=== PATIENT | male | born 1960 | race Asian ===

== ENCOUNTER 2019-02-05 21:30 | Inpatient (IN) | payer MEDICARE, OTHER ==
[2019-02-05 22:37] LABS: ADD MAN DIFF? NO; BASOPHILS % 0.3 % (0.0-2.0); EOSINOPHILS # 0.2 10^3/ul (0.0-0.5); EOSINOPHILS % 2.9 % (0.0-7.0); HEMATOCRIT 27.6 % (42.0-52.0); HEMOGLOBIN 9.3 g/dl (14.0-18.0); LYMPHOCYTES # 1.4 10^3/ul (0.8-2.9); LYMPHOCYTES % 22.3 % (15.0-51.0); MEAN CORPUSCULAR HEMOGLOBIN 30.8 pg (29.0-33.0); MEAN CORPUSCULAR HGB CONC 33.7 g/dl (32.0-37.0); MEAN CORPUSCULAR VOLUME 91.4 fl (82.0-101.0); MEAN PLATELET VOLUME 10.6 fl (7.4-10.4); MONOCYTE # 0.7 10^3/ul (0.3-0.9); NEUTROPHILS % 63.2 % (39.0-77.0); PLATELET COUNT 134 10^3/UL (140-415); RED BLOOD COUNT 3.02 10^6/ul (4.70-6.10)
[2019-02-05 22:37] LABS: WHITE BLOOD COUNT 6.3 10^3/ul (4.8-10.8)
[2019-02-05 22:44] LABS: ALANINE AMINOTRANSFERASE 28 IU/L (13-69); ALBUMIN 4.5 g/dl (3.3-4.9); ALBUMIN/GLOBULIN RATIO 1.55; ALKALINE PHOSPHATASE 59 IU/L (42-121); ANION GAP 16 (5-13); ASPARTATE AMINO TRANSFERASE 18 IU/L (15-46); BILIRUBIN,INDIRECT 0.3 mg/dl (0-1.1); BILIRUBIN,TOTAL 0.3 mg/dl (0.2-1.3); CALCIUM 7.2 mg/dl (8.4-10.2); CARBON DIOXIDE 22 mmol/L (21-31); CHLORIDE 106 mmol/L (97-110); CREATININE 12.61 mg/dl (0.61-1.24); Estimated GFR 4 mL/min (>60); GLUCOSE 187 mg/dl (70-220); POTASSIUM 4.5 mmol/L (3.5-5.1); SODIUM 144 mmol/L (135-144); TOTAL PROTEIN 7.4 g/dl (6.1-8.1)
[2019-02-05 22:53] LABS: BLOOD UREA NITROGEN 149 mg/dl (7-20)
[2019-02-05 22:56] LABS: B-TYPE NATRIURETIC PEPTIDE 876 PG/ML (0-125); TROPONIN-I < 0.012 ng/ml (0.000-0.120)
[2019-02-06] MEDS: FUROSEMIDE 40 MG INJ IV (00:54)
[2019-02-06] MEDS ORDERED: NACL 0.9% 3 ML SYG IV (01:00)
[2019-02-06] MEDS ORDERED: DOCUSATE SODIUM 100 MG CAP PO (01:00)
[2019-02-06] MEDS ORDERED: ACETAMINOPHEN 325 MG TAB PO (01:00)
[2019-02-06] MEDS ORDERED: BISACODYL (EC) 5 MG TAB PO (01:00)
[2019-02-06 05:42] LABS: ADD MAN DIFF? NO
[2019-02-06 05:49] LABS: WHITE BLOOD COUNT 6.3 10^3/ul (4.8-10.8)
[2019-02-06 05:49] LABS: BASOPHILS % 0.3 % (0.0-2.0); EOSINOPHILS # 0.2 10^3/ul (0.0-0.5); EOSINOPHILS % 2.8 % (0.0-7.0); HEMATOCRIT 26.8 % (42.0-52.0); HEMOGLOBIN 9.1 g/dl (14.0-18.0); LYMPHOCYTES # 1.5 10^3/ul (0.8-2.9); LYMPHOCYTES % 23.1 % (15.0-51.0); MEAN CORPUSCULAR HEMOGLOBIN 30.6 pg (29.0-33.0); MEAN CORPUSCULAR VOLUME 90.2 fl (82.0-101.0); MEAN PLATELET VOLUME 10.2 fl (7.4-10.4); MONOCYTE # 0.7 10^3/ul (0.3-0.9); MONOCYTES % 10.4 % (0.0-11.0); NEUTROPHILS % 62.9 % (39.0-77.0); PLATELET COUNT 127 10^3/UL (140-415); RED BLOOD COUNT 2.97 10^6/ul (4.70-6.10)
[2019-02-06 06:21] LABS: CREATINE KINASE 926 IU/L (23-200)
[2019-02-06 06:23] LABS: ALANINE AMINOTRANSFERASE 30 IU/L (13-69); ALBUMIN 4.2 g/dl (3.3-4.9); ALBUMIN/GLOBULIN RATIO 1.35; ALKALINE PHOSPHATASE 60 IU/L (42-121); ANION GAP 16 (5-13); ASPARTATE AMINO TRANSFERASE 17 IU/L (15-46); BILIRUBIN,INDIRECT 0.3 mg/dl (0-1.1); BILIRUBIN,TOTAL 0.3 mg/dl (0.2-1.3); CARBON DIOXIDE 22 mmol/L (21-31); CHLORIDE 107 mmol/L (97-110); CREATININE 12.62 mg/dl (0.61-1.24); Estimated GFR 4 mL/min (>60); GLUCOSE 158 mg/dl (70-220); PHOSPHORUS 7.6 mg/dl (2.5-4.9); POTASSIUM 4.5 mmol/L (3.5-5.1); SODIUM 145 mmol/L (135-144); TOTAL PROTEIN 7.3 g/dl (6.1-8.1)
[2019-02-06] MEDS ORDERED: INSULIN LISPRO 45 UNIT SQ (06:30)
[2019-02-06 06:31] LABS: CK INDEX 0.4; TROPONIN-I 0.013 ng/ml (0.000-0.120)
[2019-02-06 06:55] LABS: BLOOD UREA NITROGEN 139 mg/dl (7-20)
[2019-02-06 07:54] LABS: MAGNESIUM 2.8 mg/dl (1.7-2.5)
[2019-02-06 07:55] LABS: CHOLESTEROL 105 mg/dl (100-200)
[2019-02-06 07:55] LABS: HDL CHOLESTEROL 34 mg/dl (30-78); LDL CHOLESTEROL,CALCULATED 47 mg/dl; TRIGLYCERIDES 122 mg/dl (0-149)
[2019-02-06] MEDS: INSULIN ASPART [NOVOLOG] 3 ML PEN SC ×7 (07:59→23:24)
[2019-02-06 08:07] LABS: HEMOGLOBIN A1C 7.9 % (0-5.9)
[2019-02-06] MEDS: CHOLECALCIFEROL 400 UNITS TAB PO (08:40)
[2019-02-06] MEDS: MULTIVITAMINS/MINERALS TAB PO (08:40)
[2019-02-06] MEDS: MULTIVIT/CA CARB/B CMPLX/FA TAB PO (08:40)
[2019-02-06] MEDS: ASPIRIN (EC) 81 MG TAB PO (08:40)
[2019-02-06] MEDS: AMLODIPINE 10 MG TAB PO (08:41)
[2019-02-06] MEDS: METOPROLOL 25 MG TAB PO ×2 (08:41→23:06)
[2019-02-06] MEDS ORDERED: GLUCAGON 1 MG INJ IM (09:00)
[2019-02-06] MEDS ORDERED: GLUCOSE GEL 15 GRAM TUBE BUCCAL (09:00)
[2019-02-06] MEDS ORDERED: DEXTROSE 50% 50 ML SYRINGE IV ×2 (09:00)
[2019-02-06] MEDS ORDERED: GLUCOSE GEL 15 GRAM TUBE PO ×2 (09:00)
[2019-02-06 10:56] LABS: CREATINE KINASE 849 IU/L (23-200)
[2019-02-06 11:08] LABS: CK INDEX 0.3; TROPONIN-I < 0.012 ng/ml (0.000-0.120)
[2019-02-06 11:11] LABS: CK-MB 2.77 ng/ml (0.0-2.4)
[2019-02-06] MEDS: ACCU-CHEK XX (12:18)
[2019-02-06 18:42] LABS: HEPATITIS B SURFACE ANTIGEN NEGATIVE (NEGATIVE)
[2019-02-06] MEDS: MANNITOL 25% 50 ML IV ×2 (19:29→19:39)
[2019-02-06] MEDS ORDERED: INSULIN GLARGINE [LANtus] 3 ML PEN SC (21:00)
[2019-02-06] MEDS: ATORVASTATIN 40 MG TAB PO (23:06)
[2019-02-06] MEDS: hydrALAzine 20 MG INJ IV (23:07)
[2019-02-06] MEDS: INSULIN GLARGINE [LANTus] (100 UNITS/ML) SYG SC (23:24)
[2019-02-07] MEDS: ACCU-CHEK XX (01:59)
[2019-02-07 05:43] LABS: ADD MAN DIFF? NO
[2019-02-07 05:47] LABS: BASOPHILS % 0.4 % (0.0-2.0); EOSINOPHILS # 0.2 10^3/ul (0.0-0.5); EOSINOPHILS % 2.6 % (0.0-7.0); HEMATOCRIT 28.3 % (42.0-52.0); HEMOGLOBIN 9.7 g/dl (14.0-18.0); LYMPHOCYTES # 1.3 10^3/ul (0.8-2.9); LYMPHOCYTES % 18.6 % (15.0-51.0); MEAN CORPUSCULAR HEMOGLOBIN 30.9 pg (29.0-33.0); MEAN CORPUSCULAR HGB CONC 34.3 g/dl (32.0-37.0); MEAN CORPUSCULAR VOLUME 90.1 fl (82.0-101.0); MONOCYTE # 0.9 10^3/ul (0.3-0.9); MONOCYTES % 12.6 % (0.0-11.0); NEUTROPHIL # 4.5 10^3/ul (1.6-7.5); NEUTROPHILS % 65.5 % (39.0-77.0); PLATELET COUNT 140 10^3/UL (140-415); RED BLOOD COUNT 3.14 10^6/ul (4.70-6.10); RED CELL DISTRIBUTION WIDTH 11.9 % (11.5-14.5)
[2019-02-07 05:47] LABS: WHITE BLOOD COUNT 6.8 10^3/ul (4.8-10.8)
[2019-02-07 06:22] LABS: ALANINE AMINOTRANSFERASE 29 IU/L (13-69); ALBUMIN 4.1 g/dl (3.3-4.9); ALBUMIN/GLOBULIN RATIO 1.46; ALKALINE PHOSPHATASE 53 IU/L (42-121); ANION GAP 11 (5-13); ASPARTATE AMINO TRANSFERASE 19 IU/L (15-46); BILIRUBIN,INDIRECT 0.4 mg/dl (0-1.1); BILIRUBIN,TOTAL 0.4 mg/dl (0.2-1.3); BLOOD UREA NITROGEN 99 mg/dl (7-20); CALCIUM 7.8 mg/dl (8.4-10.2); CARBON DIOXIDE 29 mmol/L (21-31); CHLORIDE 103 mmol/L (97-110); CREATININE 9.96 mg/dl (0.61-1.24); Estimated GFR 5 mL/min (>60); GLUCOSE 118 mg/dl (70-220); PHOSPHORUS 6.1 mg/dl (2.5-4.9); POTASSIUM 3.8 mmol/L (3.5-5.1); SODIUM 143 mmol/L (135-144); TOTAL PROTEIN 6.9 g/dl (6.1-8.1)
[2019-02-07] MEDS: INSULIN ASPART [NOVOLOG] 3 ML PEN SC ×7 (07:37→20:40)
[2019-02-07] MEDS: ASPIRIN (EC) 81 MG TAB PO (08:16)
[2019-02-07] MEDS: MULTIVIT/CA CARB/B CMPLX/FA TAB PO (08:16)
[2019-02-07] MEDS: AMLODIPINE 10 MG TAB PO (08:17)
[2019-02-07] MEDS: CHOLECALCIFEROL 400 UNITS TAB PO (08:17)
[2019-02-07] MEDS: MULTIVITAMINS/MINERALS TAB PO (08:17)
[2019-02-07] MEDS: METOPROLOL 25 MG TAB PO ×2 (08:17→20:33)
[2019-02-07] MEDS: ATORVASTATIN 40 MG TAB PO (20:33)
[2019-02-07] MEDS: INSULIN GLARGINE [LANTus] (100 UNITS/ML) SYG SC (20:40)
[2019-02-07] MEDS: morphine 2 MG INJ IV (22:04)
[2019-02-08] MEDS: ACCU-CHEK XX (02:13)
[2019-02-08 06:15] LABS: ADD MAN DIFF? NO
[2019-02-08 06:26] LABS: BASOPHILS % 0.5 % (0.0-2.0); EOSINOPHILS # 0.2 10^3/ul (0.0-0.5); HEMATOCRIT 28.9 % (42.0-52.0); HEMOGLOBIN 9.9 g/dl (14.0-18.0); LYMPHOCYTES # 1.2 10^3/ul (0.8-2.9); MEAN CORPUSCULAR HEMOGLOBIN 31.4 pg (29.0-33.0); MEAN CORPUSCULAR HGB CONC 34.3 g/dl (32.0-37.0); MEAN CORPUSCULAR VOLUME 91.7 fl (82.0-101.0); MEAN PLATELET VOLUME 10.5 fl (7.4-10.4); MONOCYTE # 0.8 10^3/ul (0.3-0.9); MONOCYTES % 13.1 % (0.0-11.0); NEUTROPHIL # 4.1 10^3/ul (1.6-7.5); NEUTROPHILS % 64.1 % (39.0-77.0); PLATELET COUNT 131 10^3/UL (140-415); RED BLOOD COUNT 3.15 10^6/ul (4.70-6.10); RED CELL DISTRIBUTION WIDTH 11.9 % (11.5-14.5)
[2019-02-08 06:26] LABS: WHITE BLOOD COUNT 6.4 10^3/ul (4.8-10.8)
[2019-02-08 06:47] LABS: ALANINE AMINOTRANSFERASE 30 IU/L (13-69); ALBUMIN 3.9 g/dl (3.3-4.9); ALBUMIN/GLOBULIN RATIO 1.25; ALKALINE PHOSPHATASE 54 IU/L (42-121); ANION GAP 13 (5-13); ASPARTATE AMINO TRANSFERASE 20 IU/L (15-46); BILIRUBIN,INDIRECT 0.6 mg/dl (0-1.1); BILIRUBIN,TOTAL 0.6 mg/dl (0.2-1.3); BLOOD UREA NITROGEN 70 mg/dl (7-20); CALCIUM 7.5 mg/dl (8.4-10.2); CARBON DIOXIDE 28 mmol/L (21-31); CHLORIDE 101 mmol/L (97-110); Estimated GFR 7 mL/min (>60); GLUCOSE 263 mg/dl (70-220); PHOSPHORUS 7.1 mg/dl (2.5-4.9); POTASSIUM 4.4 mmol/L (3.5-5.1); SODIUM 142 mmol/L (135-144)
[2019-02-08] MEDS: AMLODIPINE 10 MG TAB PO (08:13)
[2019-02-08] MEDS: CHOLECALCIFEROL 400 UNITS TAB PO (08:13)
[2019-02-08] MEDS: ASPIRIN (EC) 81 MG TAB PO (08:13)
[2019-02-08] MEDS: MULTIVIT/CA CARB/B CMPLX/FA TAB PO (08:13)
[2019-02-08] MEDS: MULTIVITAMINS/MINERALS TAB PO (08:13)
[2019-02-08] MEDS: METOPROLOL 25 MG TAB PO ×2 (08:14→20:26)
[2019-02-08] MEDS: INSULIN ASPART [NOVOLOG] 3 ML PEN SC ×8 (08:16→20:54)
[2019-02-08] MEDS: SEVELAMER CARBONATE 800 MG TABLET PO ×2 (12:13→17:20)
[2019-02-08] MEDS: NYSTATIN SUSP 5 ML CUP PO ×2 (17:20→20:26)
[2019-02-08] MEDS: EPOETIN ALFA-EPBX (ESRD) 10,000 UNIT/ML VIAL SC (17:21)
[2019-02-08] MEDS: ATORVASTATIN 40 MG TAB PO (20:26)
[2019-02-08] MEDS: INSULIN GLARGINE [LANTus] (100 UNITS/ML) SYG SC (20:54)
[2019-02-09] MEDS: ACCU-CHEK XX (02:00)
[2019-02-09 05:33] LABS: ADD MAN DIFF? NO
[2019-02-09 05:35] LABS: BASOPHILS % 0.4 % (0.0-2.0); EOSINOPHILS # 0.2 10^3/ul (0.0-0.5); HEMATOCRIT 30.4 % (42.0-52.0); HEMOGLOBIN 10.2 g/dl (14.0-18.0); LYMPHOCYTES # 1.5 10^3/ul (0.8-2.9); LYMPHOCYTES % 19.6 % (15.0-51.0); MEAN CORPUSCULAR HEMOGLOBIN 30.5 pg (29.0-33.0); MEAN CORPUSCULAR HGB CONC 33.6 g/dl (32.0-37.0); MEAN PLATELET VOLUME 10.3 fl (7.4-10.4); MONOCYTE # 0.8 10^3/ul (0.3-0.9); MONOCYTES % 10.4 % (0.0-11.0); NEUTROPHILS % 66.2 % (39.0-77.0); PLATELET COUNT 158 10^3/UL (140-415); RED BLOOD COUNT 3.34 10^6/ul (4.70-6.10); RED CELL DISTRIBUTION WIDTH 11.8 % (11.5-14.5)
[2019-02-09 05:35] LABS: WHITE BLOOD COUNT 7.6 10^3/ul (4.8-10.8)
[2019-02-09 06:06] LABS: ALANINE AMINOTRANSFERASE 28 IU/L (13-69); ALBUMIN 4.3 g/dl (3.3-4.9); ALBUMIN/GLOBULIN RATIO 1.48; ALKALINE PHOSPHATASE 54 IU/L (42-121); ANION GAP 13 (5-13); ASPARTATE AMINO TRANSFERASE 21 IU/L (15-46); BILIRUBIN,INDIRECT 0.6 mg/dl (0-1.1); BILIRUBIN,TOTAL 0.6 mg/dl (0.2-1.3); BLOOD UREA NITROGEN 84 mg/dl (7-20); CALCIUM 7.7 mg/dl (8.4-10.2); CARBON DIOXIDE 26 mmol/L (21-31); CHLORIDE 100 mmol/L (97-110); CREATININE 9.63 mg/dl (0.61-1.24); Estimated GFR 6 mL/min (>60); GLUCOSE 200 mg/dl (70-220); PHOSPHORUS 7.4 mg/dl (2.5-4.9); SODIUM 139 mmol/L (135-144); TOTAL PROTEIN 7.2 g/dl (6.1-8.1)
[2019-02-09] MEDS: INSULIN ASPART [NOVOLOG] 3 ML PEN SC ×7 (07:50→20:20)
[2019-02-09] MEDS: MULTIVITAMINS/MINERALS TAB PO (08:39)
[2019-02-09] MEDS: SEVELAMER CARBONATE 800 MG TABLET PO ×3 (08:39→17:41)
[2019-02-09] MEDS: NYSTATIN SUSP 5 ML CUP PO ×4 (08:39→20:15)
[2019-02-09] MEDS: CHOLECALCIFEROL 400 UNITS TAB PO (08:40)
[2019-02-09] MEDS: MULTIVIT/CA CARB/B CMPLX/FA TAB PO (08:40)
[2019-02-09] MEDS: ASPIRIN (EC) 81 MG TAB PO (08:40)
[2019-02-09] MEDS: METOPROLOL 25 MG TAB PO ×2 (08:46→20:16)
[2019-02-09] MEDS: AMLODIPINE 10 MG TAB PO (08:46)
[2019-02-09] MEDS: ATORVASTATIN 40 MG TAB PO (20:15)
[2019-02-09] MEDS: INSULIN GLARGINE [LANTus] (100 UNITS/ML) SYG SC (20:21)
[2019-02-10] MEDS: ACCU-CHEK XX (02:38)
[2019-02-10] MEDS: INSULIN ASPART [NOVOLOG] 3 ML PEN SC ×7 (08:34→20:54)
[2019-02-10] MEDS: MULTIVITAMINS/MINERALS TAB PO (08:35)
[2019-02-10] MEDS: NYSTATIN SUSP 5 ML CUP PO ×4 (08:35→20:46)
[2019-02-10] MEDS: SEVELAMER CARBONATE 800 MG TABLET PO ×3 (08:35→18:00)
[2019-02-10] MEDS: ASPIRIN (EC) 81 MG TAB PO (08:35)
[2019-02-10] MEDS: CHOLECALCIFEROL 400 UNITS TAB PO (08:35)
[2019-02-10] MEDS: MULTIVIT/CA CARB/B CMPLX/FA TAB PO (08:35)
[2019-02-10] MEDS: AMLODIPINE 10 MG TAB PO (08:36)
[2019-02-10] MEDS: METOPROLOL 25 MG TAB PO ×2 (08:36→20:46)
[2019-02-10 16:45] LABS: HAAIG REFLEX REFLEX FILED
[2019-02-10 17:39] LABS: HEPATITIS B SURFACE ANTIGEN NEGATIVE (NEGATIVE)
[2019-02-10 17:57] LABS: HEPATITIS B CORE ANTIBODY NEGATIVE (NEGATIVE); HEPATITIS C VIRAL ANTIBODY NEGATIVE (NEGATIVE)
[2019-02-10] MEDS: ATORVASTATIN 40 MG TAB PO (20:46)
[2019-02-10] MEDS: INSULIN GLARGINE [LANTus] (100 UNITS/ML) SYG SC (20:56)
[2019-02-11] MEDS: ACCU-CHEK XX (02:00)
[2019-02-11] MEDS: MULTIVIT/CA CARB/B CMPLX/FA TAB PO (09:10)
[2019-02-11] MEDS: AMLODIPINE 10 MG TAB PO (09:10)
[2019-02-11] MEDS: NYSTATIN SUSP 5 ML CUP PO ×3 (09:10→17:57)
[2019-02-11] MEDS: SEVELAMER CARBONATE 800 MG TABLET PO ×3 (09:10→17:57)
[2019-02-11] MEDS: CHOLECALCIFEROL 400 UNITS TAB PO (09:10)
[2019-02-11] MEDS: ASPIRIN (EC) 81 MG TAB PO (09:10)
[2019-02-11] MEDS: MULTIVITAMINS/MINERALS TAB PO (09:10)
[2019-02-11] MEDS: METOPROLOL 25 MG TAB PO (09:11)
[2019-02-11] MEDS: INSULIN ASPART [NOVOLOG] 3 ML PEN SC ×6 (09:15→18:02)
[2019-02-11] MEDS: DIAZEPAM 5 MG/ML SYG IV (16:06)
[2019-02-11 16:39] LABS: ANION GAP 20 (5-13); BLOOD UREA NITROGEN 35 mg/dl (7-20); CALCIUM 8.8 mg/dl (8.4-10.2); CARBON DIOXIDE 22 mmol/L (21-31); CHLORIDE 100 mmol/L (97-110); CREATININE 4.66 mg/dl (0.61-1.24); Estimated GFR 13 mL/min (>60); GLUCOSE 157 mg/dl (70-220); MAGNESIUM 2.4 mg/dl (1.7-2.5); PHOSPHORUS 3.5 mg/dl (2.5-4.9); POTASSIUM 3.1 mmol/L (3.5-5.1); SODIUM 142 mmol/L (135-144)
[2019-02-11] MEDS: POTASSIUM CHLORIDE (SR) 20 MEQ TAB PO (17:57)
[2019-02-11] MEDS: EPOETIN ALFA-EPBX (ESRD) 10,000 UNIT/ML VIAL SC (17:59)
== END 2019-02-11 18:42 | disposition home or self-care (01) | DRG 682 ==
LOC: E/R 21:30 → 6WM 23:47 → MS1 02-09 03:21
PROVIDERS: Family Medicine
PROC: 5A1D70Z Performance of Urinary Filtration, Intermittent, Less than 6 Hours Per Day (ICD-10-PCS; 2019-02-06)
PROC: 5A1D70Z Performance of Urinary Filtration, Intermittent, Less than 6 Hours Per Day (ICD-10-PCS; principal; 2019-02-11)
DX: I12.0 Hypertensive chronic kidney disease with stage 5 chronic kidney disease or end stage renal disease (principal); N18.6 End stage renal disease; E87.2 Acidosis; E87.0 Hyperosmolality and hypernatremia; B37.0 Candidal stomatitis; E11.22 Type 2 diabetes mellitus with diabetic chronic kidney disease; E83.39 Other disorders of phosphorus metabolism; R07.89 Other chest pain; D63.1 Anemia in chronic kidney disease; Z91.15 Patient's noncompliance with renal dialysis; Z79.4 Long term (current) use of insulin; Z79.82 Long term (current) use of aspirin
CPT/HCPCS: 36415; 71045; 80048; 80053; 80061; 82306; 82550; 82553; 82962; 83036; 83735; 83880; 84100; 84443; 84484; 85025; 86704; 86709; 86803; 87081; 87340; 90935; 93005; 93306; 94660; 99285-25

== ENCOUNTER 2019-05-31 22:58 | Emergency (ER) | payer OTHER, MEDICARE ==
[2019-06-01 00:52] LABS: ADD MAN DIFF? NO
[2019-06-01 00:54] LABS: WHITE BLOOD COUNT 5.4 10^3/ul (4.8-10.8)
[2019-06-01 00:54] LABS: BASOPHILS % 0.4 % (0.0-2.0); EOSINOPHILS # 0.1 10^3/ul (0.0-0.5); EOSINOPHILS % 1.3 % (0.0-7.0); HEMATOCRIT 32.4 % (42.0-52.0); HEMOGLOBIN 10.5 g/dl (14.0-18.0); LYMPHOCYTES # 1.1 10^3/ul (0.8-2.9); LYMPHOCYTES % 19.6 % (15.0-51.0); MEAN CORPUSCULAR HEMOGLOBIN 30.4 pg (29.0-33.0); MEAN CORPUSCULAR HGB CONC 32.4 g/dl (32.0-37.0); MEAN CORPUSCULAR VOLUME 93.9 fl (82.0-101.0); MEAN PLATELET VOLUME 10.5 fl (7.4-10.4); MONOCYTE # 0.8 10^3/ul (0.3-0.9); NEUTROPHIL # 3.4 10^3/ul (1.6-7.5); NEUTROPHILS % 63.3 % (39.0-77.0); PLATELET COUNT 117 10^3/UL (140-415); RED BLOOD COUNT 3.45 10^6/ul (4.70-6.10); RED CELL DISTRIBUTION WIDTH 13.9 % (11.5-14.5)
[2019-06-01 01:38] LABS: ALANINE AMINOTRANSFERASE 100 IU/L (13-69); ALBUMIN 3.7 g/dl (3.3-4.9); ALBUMIN/GLOBULIN RATIO 1.15; ALKALINE PHOSPHATASE 61 IU/L (42-121); ANION GAP 12 (5-13); ASPARTATE AMINO TRANSFERASE 35 IU/L (15-46); BILIRUBIN,INDIRECT 0.9 mg/dl (0-1.1); BILIRUBIN,TOTAL 0.9 mg/dl (0.2-1.3); BLOOD UREA NITROGEN 59 mg/dl (7-20); CALCIUM 8.4 mg/dl (8.4-10.2); CARBON DIOXIDE 28 mmol/L (21-31); CHLORIDE 97 mmol/L (97-110); CREATININE 8.02 mg/dl (0.61-1.24); Estimated GFR 7 mL/min (>60); GLUCOSE 218 mg/dl (70-220); POTASSIUM 4.3 mmol/L (3.5-5.1); SODIUM 137 mmol/L (135-144); TOTAL PROTEIN 6.9 g/dl (6.1-8.1)
[2019-06-01 01:50] LABS: B-TYPE NATRIURETIC PEPTIDE 7940 PG/ML (0-125); TROPONIN-I 0.028 ng/ml (0.000-0.120)
[2019-06-01] MEDS ORDERED: ACETAMINOPHEN 325 MG TAB PO (03:00)
[2019-06-01] MEDS ORDERED: ONDANSETRON 4 MG INJ IV (03:00)
[2019-06-01] MEDS ORDERED: INSULIN LISPRO 45 UNIT SQ (03:30)
[2019-06-01 04:46] LABS: UR RBC 1 /HPF (0-5); UR SQUAMOUS EPITHELIAL CELL FEW /HPF (FEW); UR WBC 0 /HPF (0-5)
[2019-06-01 04:47] LABS: ADD UMIC YES; UR ASCORBIC ACID NEGATIVE (NEGATIVE); UR BILIRUBIN (Dip) NEGATIVE (NEGATIVE); UR BLOOD (Dip) 1+ mg/dL (NEGATIVE); UR CLARITY CLEAR (CLEAR); UR COLOR STRAW (YELLOW); UR GLUCOSE (Dip) 3+ mg/dL (NEGATIVE); UR KETONES (Dip) NEGATIVE (NEGATIVE); UR LEUKOCYTE ESTERASE (Dip) NEGATIVE Leu/ul (NEGATIVE); UR NITRITE (Dip) NEGATIVE (NEGATIVE); UR SPECIFIC GRAVITY (Dip) 1.006 (1.003-1.030); UR TOTAL PROTEIN (Dip) 2+ mg/dl (NEGATIVE); UR UROBILINOGEN (Dip) NEGATIVE (NEGATIVE)
[2019-06-01] MEDS: BUMETANIDE 1 MG INJ IV (05:08)
[2019-06-01 05:35] LABS: WHITE BLOOD COUNT 6.3 10^3/ul (4.8-10.8)
[2019-06-01 05:35] LABS: ADD MAN DIFF? NO; BASOPHILS % 0.5 % (0.0-2.0); EOSINOPHILS # 0.1 10^3/ul (0.0-0.5); EOSINOPHILS % 2.1 % (0.0-7.0); HEMATOCRIT 32.8 % (42.0-52.0); HEMOGLOBIN 10.6 g/dl (14.0-18.0); LYMPHOCYTES # 1.4 10^3/ul (0.8-2.9); LYMPHOCYTES % 21.6 % (15.0-51.0); MEAN CORPUSCULAR HEMOGLOBIN 30.2 pg (29.0-33.0); MEAN CORPUSCULAR HGB CONC 32.3 g/dl (32.0-37.0); MEAN CORPUSCULAR VOLUME 93.4 fl (82.0-101.0); MEAN PLATELET VOLUME 10.9 fl (7.4-10.4); MONOCYTE # 0.9 10^3/ul (0.3-0.9); MONOCYTES % 14.1 % (0.0-11.0); NEUTROPHIL # 3.9 10^3/ul (1.6-7.5); NEUTROPHILS % 61.4 % (39.0-77.0); PLATELET COUNT 130 10^3/UL (140-415); RED BLOOD COUNT 3.51 10^6/ul (4.70-6.10); RED CELL DISTRIBUTION WIDTH 13.6 % (11.5-14.5)
[2019-06-01 05:52] LABS: CREATINE KINASE 254 IU/L (23-200)
[2019-06-01 06:03] LABS: CK INDEX 0.5; CK-MB 1.32 ng/ml (0.0-2.4); TROPONIN-I 0.031 ng/ml (0.000-0.120)
[2019-06-01 06:17] LABS: ANION GAP 13 (5-13); BLOOD UREA NITROGEN 62 mg/dl (7-20); CALCIUM 8.2 mg/dl (8.4-10.2); CARBON DIOXIDE 26 mmol/L (21-31); CHLORIDE 98 mmol/L (97-110); CREATININE 8.13 mg/dl (0.61-1.24); Estimated GFR 7 mL/min (>60); GLUCOSE 221 mg/dl (70-220); MAGNESIUM 2.3 mg/dl (1.7-2.5); SODIUM 137 mmol/L (135-144)
[2019-06-01] MEDS ORDERED: INSULIN ASPART [NOVOLOG] 3 ML PEN SC (07:00)
[2019-06-01 08:00] LABS: HEMOGLOBIN A1C 7.2 % (0-5.9)
[2019-06-01] MEDS ORDERED: [UNRECOGNIZED DRUG - OTHER] PO (09:00)
[2019-06-01] MEDS: DOCUSATE SODIUM 100 MG CAP PO (09:00)
[2019-06-01] MEDS: METOPROLOL 25 MG TAB PO (09:20)
[2019-06-01] MEDS: INSULIN ASPART [NOVOLOG] 3 ML PEN SC ×2 (09:20→12:50)
[2019-06-01] MEDS: AMLODIPINE 10 MG TAB PO (09:20)
[2019-06-01] MEDS: CHOLECALCIFEROL 400 UNITS TAB PO (09:20)
[2019-06-01] MEDS: MULTIVIT/CA CARB/B CMPLX/FA TAB PO (09:20)
[2019-06-01] MEDS: MULTIVITAMINS/MINERALS TAB PO (09:21)
[2019-06-01] MEDS: ASPIRIN (EC) 81 MG TAB PO (09:21)
[2019-06-01] MEDS ORDERED: GLUCAGON 1 MG INJ IM (09:30)
[2019-06-01] MEDS ORDERED: GLUCOSE GEL 15 GRAM TUBE PO ×2 (09:30)
[2019-06-01] MEDS ORDERED: DEXTROSE 50% 50 ML SYRINGE IV ×2 (09:30)
[2019-06-01] MEDS ORDERED: GLUCOSE GEL 15 GRAM TUBE BUCCAL (09:30)
[2019-06-01 11:06] LABS: CREATINE KINASE 223 IU/L (23-200)
[2019-06-01 11:19] LABS: CK INDEX 0.5; CK-MB 1.21 ng/ml (0.0-2.4); TROPONIN-I 0.017 ng/ml (0.000-0.120)
[2019-06-01] MEDS ORDERED: INSULIN GLARGINE [LANTus] (100 UNITS/ML) SYG SC (20:00)
[2019-06-01] MEDS ORDERED: ATORVASTATIN 40 MG TAB PO (21:00)
[2019-06-02] MEDS ORDERED: ACCU-CHEK XX (02:00)
== END 2019-06-01 14:48 | disposition home or self-care (01) ==
LOC: E/R 06-01 14:48
DX: I13.2 Hypertensive heart and chronic kidney disease with heart failure and with stage 5 chronic kidney disease, or end stage renal disease (principal); I50.9 Heart failure, unspecified; N18.6 End stage renal disease; Z79.4 Long term (current) use of insulin; Z79.82 Long term (current) use of aspirin
CPT/HCPCS: 36415; 71045; 74018; 76700; 80048; 80053; 81001; 82550; 82553; 82962; 83036; 83735; 83880; 84443; 84484; 85025; 87086; 93005; 96372; 96374; 99285-25